=== PATIENT | male | born 1930 | race Caucasian/White ===

== ENCOUNTER 2016-08-16 20:54 | Emergency (ER) | payer OTHER ==
[~2016-08-16] VITALS: Ht 177.8 cm; Wt 70.4 kg
[~2016-08-16 20:54] MED LIST: ACETAMINOPHEN325 M1 PO; ALAVERT10 MG PO; ALLERGY RELIEF10 M1 PO; AMLODIPINE BESYL5 MG PO; ANTIFUNGAL TP; ASCORBIC ACID500 M3 PO; ATORVASTATIN CA20 MG PO; BENAZEPRIL HCL20 MG PO; BISAC-EVAC10 MG PR; CATAPRES0.1 MG PO; CIPRO500 MG PO; CLONIDINE HCL0.1 MG PO; CRANBERRY 4001 EAC1 PO; CRESTOR5 MG PO; CYANOCOBALAM1000 MCG PO; DIOCTO50 MG/5 ML PO; DULCOLAX10 MG PR; ENULOSE10 GM/15 M PO; FUROSEMIDE20 MG PO; HIPREX1 GM PO; KEFLEX500 MG PO; LASIX10 MG PO; LEVAQUIN500 MG PO; LORATADINE10 M2 PO; LOTENSIN20 MG PO; Levaquin PO; METHENAMINE HIPP1 G1 PO; MIRALAX17 GM PO; NIFEDIPINE ER60 MG PO; NORVASC5 M1 PO; NORVASC5 MG PO; PRINZIDE 10-121 EACH PO; PROSCAR5 MG PO; Proscar PO; RISAMINE OINTM113 GM TP; RISPERDAL1 MG PO; RISPERIDONE1 MG PO; ROBITUSSIN LON118 ML PO; SOLARAZE 3% GEL50 GM PO; TIMOLOL MALEATE15 M1 BOTH EYES; TIMOPTIC-0100 DROP/1 BOTH EYES; TIMOPTIC-XE GEL5 ML BOTH EYES; TO WHOM IT MAY CONCE; TRAMADOL HCL50 MG PO; TRIPLE ANTIB28.35 GM TP; TUSSIN CF COUG118 M2; TUSSIN CF COUG118 ML PO; TYLENOL REGULA325 MG PO; UROQID-ACID1 TABLET PO; VITAMIN C500 M5 PO; Vitamin B-12 PO; Vitamin C PO; ZESTRIL,PRINIVI10 M1 PO; [UNRECOGNIZED DRUG - OTHER] TP
[2016-08-16 23:19] VITALS: BP 123/102
== END 2016-08-16 23:23 | disposition home or self-care (01) ==
LOC: EME 20:54
PROC: 0T2BX0Z Change Drainage Device in Bladder, External Approach (ICD-10-PCS; principal; 2016-08-16)
DX: T83.028A Displacement of other urinary catheter, initial encounter (principal); F03.90 Unspecified dementia, unspecified severity, without behavioral disturbance, psychotic disturbance, mood disturbance, and anxiety; I10 Essential (primary) hypertension; E78.5 Hyperlipidemia, unspecified
CPT/HCPCS: 99281; 99283

== ENCOUNTER 2016-12-19 01:36 | Emergency (ER) | payer OTHER ==
[~2016-12-19] VITALS: Ht 182.9 cm; Wt 71.4 kg
[2016-12-19 02:36] LABS: ADD MIUA? YES; BILIRUBIN NEGATIVE; BLOOD NEGATIVE; COLOR YELLOW ((YELLOW)); GLUCOSE (STRIP) NEGATIVE; KETONES 5; LEUKOCYTES LARGE; NITRITE POSITIVE; PROTEIN (STRIP) 100; SPECIFIC GRAVITY 1.015 (1.000-1.030)
[2016-12-19 02:44] LABS: BACTERIA 1+ /HPF; EPITHELIAL CELLS 1+ /HPF; MUCUS NONE SEEN /LPF; RED BLOOD CELLS 0-5 /HPF (0-5); UCUL ADDED? YES
[2016-12-19] MEDS ORDERED: CEFTIN250 MG PO (03:42)
[2016-12-19 04:01] VITALS: BP 154/90
== END 2016-12-19 04:43 | disposition home or self-care (01) ==
LOC: EME 01:36
PROVIDERS: Emergency Medicine
DX: S09.90XA Unspecified injury of head, initial encounter (principal); S01.81XA Laceration without foreign body of other part of head, initial encounter; W06.XXXA Fall from bed, initial encounter; Y92.193 Bedroom in other specified residential institution as the place of occurrence of the external cause; N39.0 Urinary tract infection, site not specified; E78.5 Hyperlipidemia, unspecified; F03.90 Unspecified dementia, unspecified severity, without behavioral disturbance, psychotic disturbance, mood disturbance, and anxiety; I10 Essential (primary) hypertension
CPT/HCPCS: 70450; 71010; 72125; 72170; 81003; 87086 GA; 99281; 99284

== ENCOUNTER 2017-02-21 11:51 | Emergency (ER) | payer OTHER ==
[~2017-02-21] VITALS: Ht 175.3 cm; Wt 70.1 kg
[~2017-02-21 11:51] MED LIST changes: +CEFTIN250 MG PO
[2017-02-21 12:35] LABS: MEAN PLAT.VOLUME 8.9 uM^3 (9.0-12.4); PLATELET COUNT 302 K/uL (156-360)
[2017-02-21 12:40] LABS: HEMATOCRIT 38.3 % (38.0-50.0); MCH 34.1 PG (29.0-34.0); MCHC 35.2 G/DL (30.0-36.0); MCV 96.7 FL (86-99); NRBC (%) 0.1 /100 WBC (0-0); RBC DIS.WIDTH-CV 12.4 % (11.8-14.6); RBC DIS.WIDTH-SD 44.4 % (39-53); RED BLOOD COUNT 3.96 M/uL (4.00-5.50); WHITE BLOOD COUNT 38.1 K/uL (4.1-10.2)
[2017-02-21 12:41] LABS: ADD MIUA? YES; BILIRUBIN NEGATIVE; BLOOD NEGATIVE; COLOR YELLOW ((YELLOW)); GLUCOSE (STRIP) NEGATIVE; KETONES NEGATIVE; LEUKOCYTES LARGE; NITRITE POSITIVE; PROTEIN (STRIP) >=500; SPECIFIC GRAVITY 1.019 (1.000-1.030)
[2017-02-21 12:43] LABS: CHLORIDE 97 mEq/L (99-109); SODIUM 132 mEq/L (136-147)
[2017-02-21 12:46] LABS: GLUCOSE 107 mg/dL (70-99)
[2017-02-21 12:47] LABS: BACTERIA 3+ /HPF; EPITHELIAL CELLS RARE /HPF; MUCUS TRACE /LPF; UCUL ADDED? YES; WHITE BLOOD CELLS TNTC /HPF (0-5)
[2017-02-21 12:47] LABS: ANION GAP 10 MEQ/L (2-14)
[2017-02-21 12:48] LABS: TOTAL BILIRUBIN 0.5 mg/dL (0.0-1.0)
[2017-02-21 12:49] LABS: ALKALINE PHOSPHATASE 97 IU/L (3-129); GFR ESTIMATE (CALCULATED) > 59 mL/min/
[2017-02-21 12:50] LABS: UREA NITROGEN (BUN) 18 mg/dL (9-23)
[2017-02-21] MEDS ORDERED: CEFTIN500 MG PO (14:37)
[2017-02-21 17:15] VITALS: BP 133/68
== END 2017-02-21 17:16 | disposition home or self-care (01) ==
LOC: EME 11:51
PROVIDERS: Emergency Medicine
DX: S00.93XA Contusion of unspecified part of head, initial encounter (principal); S60.221A Contusion of right hand, initial encounter; D72.829 Elevated white blood cell count, unspecified; N39.0 Urinary tract infection, site not specified; F79 Unspecified intellectual disabilities; F03.91 Unspecified dementia, unspecified severity, with behavioral disturbance; I10 Essential (primary) hypertension; E78.5 Hyperlipidemia, unspecified; F41.9 Anxiety disorder, unspecified; Z86.19 Personal history of other infectious and parasitic diseases; R33.8 Other retention of urine; W19.XXXA Unspecified fall, initial encounter; Y92.199 Unspecified place in other specified residential institution as the place of occurrence of the external cause
CPT/HCPCS: 70450; 71010; 72125; 73522; 80053; 81003; 83605; 85027; 87040; 87077; 87086; 87186; 99281; 99285; J2543; J3370

== ENCOUNTER 2017-06-19 12:01 | Emergency (ER) | payer OTHER ==
[~2017-06-19] VITALS: Ht 177.8 cm; Wt 71.2 kg
[~2017-06-19 12:01] MED LIST changes: +CEFTIN500 MG PO
[2017-06-19 15:51] VITALS: BP 184/89
== END 2017-06-19 16:05 | disposition home or self-care (01) ==
LOC: EME 12:01
DX: S01.01XA Laceration without foreign body of scalp, initial encounter (principal); R22.0 Localized swelling, mass and lump, head; F79 Unspecified intellectual disabilities; W19.XXXA Unspecified fall, initial encounter; Z23 Encounter for immunization; I10 Essential (primary) hypertension; F41.9 Anxiety disorder, unspecified; F03.90 Unspecified dementia, unspecified severity, without behavioral disturbance, psychotic disturbance, mood disturbance, and anxiety; E78.5 Hyperlipidemia, unspecified; B19.10 Unspecified viral hepatitis B without hepatic coma; Z87.440 Personal history of urinary (tract) infections; Z88.8 Allergy status to other drugs, medicaments and biological substances
CPT/HCPCS: 70450; 99281; 99285

== ENCOUNTER 2017-06-22 17:15 | Inpatient (IN) | payer OTHER ==
[~2017-06-22] VITALS: Ht 167.6 cm; Wt 66.7 kg
[2017-06-22 17:53] LABS: PLATELET COUNT 222 K/uL (156-360)
[2017-06-22 17:57] LABS: HEMATOCRIT 35.8 % (38.0-50.0); HEMOGLOBIN 12.6 G/DL (12.5-16.6); MCH 34.1 PG (29.0-34.0); MCHC 35.2 G/DL (30.0-36.0); MCV 96.8 FL (86-99); RBC DIS.WIDTH-SD 46.1 % (39-53)
[2017-06-22 17:58] LABS: WHITE BLOOD COUNT 34.4 K/uL (4.1-10.2)
[2017-06-22 17:59] LABS: INTER. NORMALIZED RATIO 1.2
[2017-06-22 18:01] LABS: PTT 27.5 SEC (25-37)
[2017-06-22 18:04] LABS: ALBUMIN 3.5 g/dL (3.2-4.8); CHLORIDE 91 mEq/L (99-109); SODIUM 127 mEq/L (136-147)
[2017-06-22 18:07] LABS: GLUCOSE 127 mg/dL (70-99); TOTAL PROTEIN 7.3 g/dL (6.4-8.3)
[2017-06-22 18:10] LABS: ALKALINE PHOSPHATASE 144 IU/L (3-129); CREATININE 0.9 mg/dL (0.6-1.3); GFR ESTIMATE (CALCULATED) > 59 mL/min/ (58.99-99999)
[2017-06-22 18:11] LABS: UREA NITROGEN (BUN) 37 mg/dL (9-23)
[2017-06-22 18:12] LABS: AST (GOT) 44 IU/L (2-34)
[2017-06-22 18:13] LABS: ALT (GPT) 88 IU/L (3-49)
[2017-06-22 18:14] LABS: LIPASE 9 U/L (1.0-51.0)
[2017-06-22 18:20] LABS: TROP-I INTERPRETATION NEGATIVE; TROPONIN-I 0.02 ng/mL (0.0-0.30)
[2017-06-22 19:26] LABS: ABS NEUTROPHIL COUNT 21.1; ANISOCYTOSIS 1+; BAND NEUTROPHILS 8.2 % (0-8.0); EOSINOPHIL ABS CT 0; MACROCYTES 1+; METAMYELOCYTES 1.4 %; MONOCYTES 4.1 % (0-9.0); PLAT.SUFFICIENCY ADEQUATE; SPHEROCYTES 1+
[2017-06-22 19:34] LABS: BILIRUBIN NEGATIVE; BLOOD NEGATIVE; COLOR YELLOW ((YELLOW)); GLUCOSE (STRIP) NEGATIVE; KETONES NEGATIVE; LEUKOCYTES MODERATE; NITRITE POSITIVE; PROTEIN (STRIP) 100
[2017-06-22 19:35] LABS: APPEARANCE CLOUDY ((CLEAR))
[2017-06-22 19:36] LABS: AMORPHOUS URATES CRYSTALS 2+; BACTERIA 2+ /HPF; EPITHELIAL CELLS 1+ /HPF; MUCUS NONE SEEN /LPF; RED BLOOD CELLS 0-5 /HPF (0-5); UCUL ADDED? YES; WHITE BLOOD CELLS 20-30 /HPF (0-5)
[2017-06-22] MEDS ORDERED: [UNRECOGNIZED DRUG - OTHER] TP (20:40)
[2017-06-22 21:40] VITALS: BP 181/105
[2017-06-23 01:54] VITALS: BP 117/82
[2017-06-23 07:46] LABS: ALBUMIN 2.8 G/DL (3.2-4.8); CHLORIDE 97 MEQ/L (99-109); POTASSIUM 3.3 MEQ/L (3.7-5.4); SODIUM 130 MEQ/L (136-147); TOTAL BILIRUBIN 0.5 MG/DL (0.0-1.0)
[2017-06-23 07:52] LABS: ALKALINE PHOSPHATASE 93 IU/L (3-129); ALT (GPT) 47 IU/L (3-49); AST (GOT) 25 IU/L (2-34); CREATININE 0.8 MG/DL (0.6-1.3); GFR ESTIMATE (CALCULATED) > 59 mL/min/ (58.99-99999); GLUCOSE 110 mg/dL (70-99); TOTAL PROTEIN 5.3 G/DL (6.4-8.3); UREA NITROGEN (BUN) 26 mg/dL (9-23)
[2017-06-23 08:59] VITALS: BP 140/78
[2017-06-23 11:48] VITALS: BP 160/79
[2017-06-23 16:28] VITALS: BP 162/70
[2017-06-23 19:00] VITALS: BP 155/67
[2017-06-23 23:16] VITALS: BP 148/70
[2017-06-24 05:00] VITALS: BP 125/74
[2017-06-24 07:45] VITALS: BP 180/80
[2017-06-24 09:43] LABS: HEMATOCRIT 34.1 % (38.0-50.0); HEMOGLOBIN 11.8 G/DL (12.5-16.6); MCH 33.2 PG (29.0-34.0); MCHC 34.6 G/DL (30.0-36.0); MCV 96.1 FL (86-99); PLATELET COUNT 163 K/uL (156-360); RED BLOOD COUNT 3.55 M/uL (4.00-5.50); WHITE BLOOD COUNT 19.1 K/uL (4.1-10.2)
[2017-06-24 10:11] LABS: ABS NEUTROPHIL COUNT 12.3; ANISOCYTOSIS 1+; EOSINOPHIL ABS CT 0.3; EOSINOPHILS 1.8 % (0-5.0); MACROCYTES 1+; MONOCYTES 5.4 % (0-9.0); MYELOCYTES 0.9 %; SEG.NEUTROPHILS 56.2 % (46.0-76.0); SMUDGE CELLS 87.5
[2017-06-24 10:15] LABS: ALBUMIN 2.7 G/DL (3.2-4.8); ALKALINE PHOSPHATASE 82 IU/L (3-129); ALT (GPT) 39 IU/L (3-49); AST (GOT) 21 IU/L (2-34); CHLORIDE 96 MEQ/L (99-109); CREATININE 0.8 MG/DL (0.6-1.3); GFR ESTIMATE (CALCULATED) > 59 mL/min/ (58.99-99999); POTASSIUM 2.7 MEQ/L (3.7-5.4); SODIUM 131 MEQ/L (136-147); TOTAL BILIRUBIN 0.5 MG/DL (0.0-1.0); TOTAL PROTEIN 5.5 G/DL (6.4-8.3); UREA NITROGEN (BUN) 25 mg/dL (9-23)
[2017-06-24 10:17] LABS: GLUCOSE 194 mg/dL (70-99)
[2017-06-24 11:50] VITALS: BP 162/74
[2017-06-24 16:17] VITALS: BP 157/87
[2017-06-25 00:09] VITALS: BP 149/78
[2017-06-25 08:29] VITALS: BP 161/66
[2017-06-25 09:01] LABS: IMMUNOGLOBULIN G 1204 MG/DL (650-1600); IMMUNOGLOBULIN M 66 MG/DL (50-300)
[2017-06-25 09:02] LABS: LACTATE DEHYDROGENASE 152 IU/L (20-246)
[2017-06-25 09:03] LABS: HEMATOCRIT 32.4 % (38.0-50.0); HEMOGLOBIN 11.4 G/DL (12.5-16.6); MCH 34.4 PG (29.0-34.0); MCHC 35.2 G/DL (30.0-36.0); MCV 97.9 FL (86-99); NRBC (%) 0.2 /100 WBC (0-0); PLATELET COUNT 163 K/uL (156-360); RBC DIS.WIDTH-CV 13.2 % (11.8-14.6); RBC DIS.WIDTH-SD 47.8 % (39-53); RED BLOOD COUNT 3.31 M/uL (4.00-5.50); WHITE BLOOD COUNT 19.3 K/uL (4.1-10.2)
[2017-06-25 09:04] LABS: ALBUMIN 2.7 G/DL (3.4-5.0); GLOBULINS 2.8 G/DL (2.3-3.5); TOTAL PROTEIN 5.5 G/DL (6.4-8.2)
[2017-06-25 09:12] LABS: PROSTATIC SPEC. AG. 4.5 nG/mL (0-4.0)
[2017-06-25 09:21] LABS: CHLORIDE 99 MEQ/L (99-109); CREATININE 1.1 MG/DL (0.6-1.3); GFR ESTIMATE (CALCULATED) > 59 mL/min/ (58.99-99999); POTASSIUM 2.9 MEQ/L (3.7-5.4); SODIUM 136 MEQ/L (136-147)
[2017-06-25 09:22] LABS: GLUCOSE 105 mg/dL (70-99); UREA NITROGEN (BUN) 39 mg/dL (9-23)
[2017-06-25 09:38] LABS: ANISOCYTOSIS 1+; BAND NEUTROPHILS 4.4 % (0-8.0); BASOPHILS 0.9 %; EOSINOPHIL ABS CT 0.2; EOSINOPHILS 0.9 % (0-5.0); HYPOCHROMASIA 1+; MACROCYTES 1+; METAMYELOCYTES 2.6 %; MONOCYTES 7.9 % (0-9.0); MYELOCYTES 0.9 %; OTHER 24.5; PLAT.SUFFICIENCY ADEQUATE; POIKILOCYTOSIS 1+; SEG.NEUTROPHILS 57.9 % (46.0-76.0); SMUDGE CELLS 136.8; SPHEROCYTES 1+
[2017-06-25 11:40] VITALS: BP 103/55
[2017-06-25 16:56] LABS: ALBUMIN 2.59 G/DL (3.6-4.9); ALPHA-1 GLOBULIN 0.41 G/DL (0.15-0.40); BETA-GLOBULIN 0.63 G/DL (0.65-1.15); GAMMA-GLOBULIN 1.07 G/DL (0.60-1.35)
[2017-06-25 18:12] VITALS: BP 135/67
[2017-06-25 19:15] VITALS: BP 130/72
[2017-06-25 23:02] VITALS: BP 128/76
[2017-06-26 04:05] VITALS: BP 126/72
[2017-06-26 06:00] LABS: URINE TOTAL PROTEIN 192 MG/DL (0-10)
[2017-06-26 06:55] VITALS: BP 144/68
[2017-06-26 15:46] VITALS: BP 146/68
[2017-06-26 23:59] VITALS: BP 182/72
[2017-06-27 07:28] VITALS: BP 175/93
[2017-06-27] MEDS ORDERED: NORVASC5 MG PO (11:52)
[2017-06-27] MEDS ORDERED: CATAPRES0.1 MG PO (11:56)
[2017-06-27 15:45] VITALS: BP 130/74
[2017-06-28 14:15] LABS: Flow Number of Markers 22 (()); Flow Spec Viability 96 % (()); Flow Specimen Type PERIPHERAL BLOOD (())
== END 2017-06-27 17:11 | disposition home or self-care (01) | DRG 872 ==
LOC: EME 17:15 → EDOF 20:25 → 2EAST 20:25 → ENRESERV 20:34 → 2EAST 21:21
PROVIDERS: Emergency Medicine; Internal Medicine; Internal Medicine Medical Oncology; Student in an Organized Health Care Education/Training Program
PROC: 0T2BX0Z Change Drainage Device in Bladder, External Approach (ICD-10-PCS; principal; 2017-06-25)
DX: A41.50 Gram-negative sepsis, unspecified (principal); E87.1 Hypo-osmolality and hyponatremia; F05 Delirium due to known physiological condition; N39.0 Urinary tract infection, site not specified; C90.00 Multiple myeloma not having achieved remission; C91.10 Chronic lymphocytic leukemia of B-cell type not having achieved remission; B18.1 Chronic viral hepatitis B without delta-agent; R47.01 Aphasia; S22.41XA Multiple fractures of ribs, right side, initial encounter for closed fracture; M84.48XA Pathological fracture, other site, initial encounter for fracture; M48.56XA Collapsed vertebra, not elsewhere classified, lumbar region, initial encounter for fracture; F02.81 Dementia in other diseases classified elsewhere, unspecified severity, with behavioral disturbance; E78.5 Hyperlipidemia, unspecified; E87.6 Hypokalemia; G30.9 Alzheimer's disease, unspecified; F79 Unspecified intellectual disabilities; I10 Essential (primary) hypertension; K59.00 Constipation, unspecified; N31.9 Neuromuscular dysfunction of bladder, unspecified; N40.0 Benign prostatic hyperplasia without lower urinary tract symptoms; R29.6 Repeated falls; Z16.24 Resistance to multiple antibiotics; S01.01XA Laceration without foreign body of scalp, initial encounter; D64.9 Anemia, unspecified; W18.30XA Fall on same level, unspecified, initial encounter; Z87.440 Personal history of urinary (tract) infections; Z93.59 Other cystostomy status; Z87.820 Personal history of traumatic brain injury; Y92.481 Parking lot as the place of occurrence of the external cause
CPT/HCPCS: 70450; 74022; 74177; 80048; 80053; 81003; 82784; 83605; 83615; 83690; 84132; 84153; 84165; 84166; 84484; 85025; 85610; 85730; 87040; 87077; 87086; 87186; 87641; 99281; 99285; J0744; J1200; J1335; J1650; J2543; J7050

== ENCOUNTER 2017-07-23 14:43 | Emergency (ER) | payer OTHER ==
[~2017-07-23] VITALS: Ht 167.6 cm; Wt 68.3 kg
[2017-07-23] MEDS ORDERED: CORTIZONE-10 PL57 GM TP (15:42)
[2017-07-23 16:08] VITALS: BP 142/92
== END 2017-07-23 16:11 | disposition home or self-care (01) ==
LOC: EME 14:43
DX: L20.9 Atopic dermatitis, unspecified (principal); I10 Essential (primary) hypertension; E78.5 Hyperlipidemia, unspecified; N31.9 Neuromuscular dysfunction of bladder, unspecified; Z96.0 Presence of urogenital implants; N40.0 Benign prostatic hyperplasia without lower urinary tract symptoms; I83.90 Asymptomatic varicose veins of unspecified lower extremity; H40.9 Unspecified glaucoma; C91.10 Chronic lymphocytic leukemia of B-cell type not having achieved remission; B18.1 Chronic viral hepatitis B without delta-agent; F79 Unspecified intellectual disabilities; Z85.9 Personal history of malignant neoplasm, unspecified; Z88.8 Allergy status to other drugs, medicaments and biological substances
CPT/HCPCS: 99281; 99282

== ENCOUNTER 2017-07-26 00:14 | Emergency (ER) | payer OTHER ==
[~2017-07-26] VITALS: Ht 177.8 cm; Wt 72.5 kg
[~2017-07-26 00:14] MED LIST changes: +CORTIZONE-10 PL57 GM TP
[2017-07-26 04:44] VITALS: BP 147/85
== END 2017-07-26 05:00 | disposition home or self-care (01) ==
LOC: EME 00:14
DX: S09.90XA Unspecified injury of head, initial encounter (principal); S13.9XXA Sprain of joints and ligaments of unspecified parts of neck, initial encounter; W06.XXXA Fall from bed, initial encounter; F79 Unspecified intellectual disabilities; F03.90 Unspecified dementia, unspecified severity, without behavioral disturbance, psychotic disturbance, mood disturbance, and anxiety; I10 Essential (primary) hypertension; E78.5 Hyperlipidemia, unspecified; B18.1 Chronic viral hepatitis B without delta-agent; F41.9 Anxiety disorder, unspecified
CPT/HCPCS: 70450; 72125; 99281; 99284; J1630; J2060

== ENCOUNTER 2017-07-31 04:10 | Emergency (ER) | payer OTHER ==
[~2017-07-31] VITALS: Ht 175.3 cm; Wt 68.1 kg
[2017-07-31 08:17] VITALS: BP 148/94
== END 2017-07-31 08:26 | disposition home or self-care (01) ==
LOC: EME → EDBD 04:10 → EME 08:26
DX: S00.01XA Abrasion of scalp, initial encounter (principal); F79 Unspecified intellectual disabilities; F03.90 Unspecified dementia, unspecified severity, without behavioral disturbance, psychotic disturbance, mood disturbance, and anxiety; W06.XXXA Fall from bed, initial encounter; I10 Essential (primary) hypertension; E78.5 Hyperlipidemia, unspecified
CPT/HCPCS: 70450; 99281; 99283

== ENCOUNTER 2017-08-22 08:20 | Emergency (ER) | payer OTHER ==
[~2017-08-22] VITALS: Ht 167.6 cm; Wt 69.3 kg
[2017-08-22 09:19] VITALS: BP 157/77
== END 2017-08-22 09:23 | disposition home or self-care (01) ==
LOC: EME 08:20
PROC: 0T2BX0Z Change Drainage Device in Bladder, External Approach (ICD-10-PCS; principal; 2017-08-22)
DX: Z46.6 Encounter for fitting and adjustment of urinary device (principal); Z88.1 Allergy status to other antibiotic agents
CPT/HCPCS: 99281; 99283

== ENCOUNTER 2017-08-26 21:02 | Emergency (ER) | payer OTHER ==
[~2017-08-26] VITALS: Ht 172.7 cm; Wt 93.5 kg
[2017-08-26 22:06] LABS: APPEARANCE HAZY ((CLEAR)); COLOR YELLOW ((YELLOW)); LEUKOCYTES MODERATE; NITRITE POSITIVE; PH, URINE 8.5 (5-8); PROTEIN (STRIP) 100; SPECIFIC GRAVITY 1.005 (1.000-1.030)
[2017-08-26 22:07] LABS: BILIRUBIN NEGATIVE; BLOOD TRACE; GLUCOSE (STRIP) NEGATIVE; KETONES NEGATIVE
[2017-08-26] MEDS ORDERED: CIPRO500 MG PO (22:13)
[2017-08-26 22:15] LABS: BACTERIA 1+ /HPF; EPITHELIAL CELLS RARE /HPF; MUCUS RARE /LPF; RED BLOOD CELLS 0-5 /HPF (0-5); WHITE BLOOD CELLS 20-30 /HPF (0-5)
[2017-08-26 22:16] LABS: AMORPHOUS PHOSPHATE CRYSTALS 1+
[2017-08-26 22:45] VITALS: BP 149/74
== END 2017-08-26 22:52 | disposition home or self-care (01) ==
LOC: EME → EDBD 21:02 → EME 22:52
PROVIDERS: Emergency Medicine
PROC: 0T2BX0Z Change Drainage Device in Bladder, External Approach (ICD-10-PCS; principal; 2017-08-26)
DX: N30.00 Acute cystitis without hematuria (principal); Z46.6 Encounter for fitting and adjustment of urinary device; N31.9 Neuromuscular dysfunction of bladder, unspecified; N40.0 Benign prostatic hyperplasia without lower urinary tract symptoms; I10 Essential (primary) hypertension; E78.5 Hyperlipidemia, unspecified; F79 Unspecified intellectual disabilities; F03.90 Unspecified dementia, unspecified severity, without behavioral disturbance, psychotic disturbance, mood disturbance, and anxiety; F41.9 Anxiety disorder, unspecified; B19.10 Unspecified viral hepatitis B without hepatic coma; Z85.6 Personal history of leukemia; Z85.828 Personal history of other malignant neoplasm of skin; Z88.1 Allergy status to other antibiotic agents
CPT/HCPCS: 81003; 87077; 87086; 87186; 99281; 99284